=== PATIENT | male | born 1945 | race Caucasian/White ===

== ENCOUNTER 2024-02-12 06:50 | Day surgery (SDC) | payer MEDICARE ==
[~2024-02-12] VITALS: Ht 170.2 cm; Wt 63.9 kg
[2024-02-12] VITALS (9 sets, daily range): BP systolic 135–150; BP diastolic 65–95; PULSE 54–68; TEMP 98.4
[2024-02-12] MEDS ORDERED: 1/2 NS 1,000 ML IV SCH (07:30)
[2024-02-12 07:51] LABS: HEMATOCRIT 45.2 % (42.0-52.0); HEMOGLOBIN 15.7 g/dl (13.5-18.0); MEAN CELL VOLUME 90 fl (80.0-100.0); MEAN CORPUSCULAR HEMOGLOBIN 31 pg (27-31); MEAN CORPUSCULAR HGB CONC 35 g/dl (33.0-37.0); MEAN PLATELET VOLUME 10.7 fl (7.4-10.4); PLATELET COUNT 150 K/mm3 (130-400); RED BLOOD COUNT 5.01 M/mm3 (4.20-5.60)
[2024-02-12 07:56] LABS: INR 1.1 (0.8-3.0); PROTHROMBIN TIME 11.5 SECONDS (9.7-12.8)
[2024-02-12 07:59] LABS: PARTIAL THROMBOPLASTIN TIME 28.5 SECONDS (26.0-37.0)
[2024-02-12 08:05] LABS: CALCIUM 9.2 mg/dL (8.4-10.2); CREATININE, serum 0.87 mg/dL (0.72-1.25); POTASSIUM 3.7 mEq/L (3.5-4.5)
[2024-02-12] MEDS ORDERED: ASPIRIN 81M81 MG/TA2 PO (08:07)
[2024-02-12] MEDS ORDERED: ALLEGRA 180MG180 MG PO (08:08)
[2024-02-12] MEDS ORDERED: MULTIPLE VITAMI1 CAP PO (08:08)
[2024-02-12] MEDS ORDERED: GLUCOPHAGE1000 MG PO (08:09)
[2024-02-12] MEDS ORDERED: DIABETA 5MG5 MG/TAB PO (08:09)
[2024-02-12] MEDS ORDERED: LIPITOR 40MG TA40 MG PO (08:10)
[2024-02-12] MEDS ORDERED: NORVASC 10MG10 MG PO (08:10)
[2024-02-12] MEDS ORDERED: VITAMIN FLUSH-F1 CAP (08:10)
[2024-02-12] MEDS ORDERED: FLOMAX 0.40.4 MG/CAP PO (08:11)
[2024-02-12] MEDS ORDERED: AMBIEN 10MG10 MG PO (08:12)
[2024-02-12] MEDS ORDERED: Nitroglycerin 2% Topical Oint 1 GM UD TD SCH (08:37)
[2024-02-12] MEDS ORDERED: niCARdipine (Cath Lab) 100 MCG/ML 10 ML VIAL IA SCH (10:36)
[2024-02-12] MEDS ORDERED: Heparin 1,000 UNITS/ML 10 ML Multi-Dose VIAL IV SCH (10:43)
[2024-02-12] MEDS ORDERED: Midazolam 2 MG/2 ML VIAL IV SCH (10:52)
[2024-02-12] MEDS ORDERED: fentaNYL 50 MCG/ML 2 ML VIAL IV SCH (10:56)
[2024-02-12] MEDS ORDERED: Iohexol 350 - 100 ML VIAL INCOR ONE (10:59)
[2024-02-12] MEDS ORDERED: Heparin/D5W 250 ML IV SCH (11:30)
[2024-02-12] MEDS ORDERED: Heparin 5,000 UNITS/ML 1 ML VIAL IV PRN (11:30)
--- NOTE | 2024-02-12 11:38 | NUR ---
Please see merge document for record of interventions, vitals and medications administered during left heart cath with Dr. Medley. Pt has been transferred back to express unit rm 9 for monitoring until probable transfer to [place]. Pt and have been updated on poc by Dr. Medley. BS report and handoff of care to Isabell NIETO.
[2024-02-12] MEDS ORDERED: HEPARIN SOD5000 U/ML IV (13:00)
--- NOTE | 2024-02-12 14:05 | NUR ---
Pt ambulated to EU9 with a steady gait, accompanied by their . Pt was scheduled for a [facility]. Meds and HX reviewed with the pt. Consent for the procedure signed. EKG done. IV started, labs drawn. Post procedure the pt came back to EU9. talked with the pt about being transferred to [place] for further care. This nurse discussed with the pt that they were to be complete bedrest, if they needed to use the restroom they were to use a urinal. Also the pt would stay NPO incase they planned to have a procedure done at [facility]. Pt verbalized their understanding. EMS came to get the pt and reported given to EMS. The pt left with EMS at 1341. At 1351 report to GERSON Lo at [facility] given. Teresita did not have any questions at this time, but took our number incase a question was thought of.
== END 2024-02-12 13:41 | disposition short-term general hospital (02) ==
LOC: COL.CAR 06:50
PROVIDERS: Internal Medicine Cardiovascular Disease
DX: I25.10 Atherosclerotic heart disease of native coronary artery without angina pectoris (principal)
CPT/HCPCS: C1769; J1644; J2250; J2404; J3010; Q9967

== ENCOUNTER 2024-03-16 17:47 | Emergency (ER) | payer MEDICARE ==
[~2024-03-16] VITALS: Ht 170.2 cm; Wt 60.5 kg
[~2024-03-16 17:47] MED LIST: ALLEGRA 180MG180 MG PO; AMBIEN 10MG10 MG PO; ASPIRIN 81M81 MG/TA2 PO; DIABETA 5MG5 MG/TAB PO; FLOMAX 0.40.4 MG/CAP PO; GLUCOPHAGE1000 MG PO; HEPARIN SOD5000 U/ML IV; LIPITOR 40MG TA40 MG PO; MULTIPLE VITAMI1 CAP PO; NORVASC 10MG10 MG PO; VITAMIN FLUSH-F1 CAP
[2024-03-16 17:49] VITALS: TEMP 97
[2024-03-16] MEDS ORDERED: Dextrose 50% Water 25 GM/50 ML SYRINGE IV ONE (18:00)
[2024-03-16 18:02] LABS: BASO % 0.3 % (0.0-2.0); EOS % 0.3 % (0.0-4.0); GRAN # 4.1 K/mm3 (1.4-6.5); GRAN % 63.5 % (42.2-75.2); HEMATOCRIT 38.2 % (42.0-52.0); HEMOGLOBIN 12.3 g/dl (13.5-18.0); LYMPH # 1.8 K/mm3 (1.2-3.4); LYMPH % 27.1 % (20.0-51.0); MEAN CELL VOLUME 92 fl (80.0-100.0); MEAN CORPUSCULAR HEMOGLOBIN 30 pg (27-31); MEAN CORPUSCULAR HGB CONC 32 g/dl (33.0-37.0); MEAN PLATELET VOLUME 10.1 fl (7.4-10.4); MONO # 0.6 K/mm3 (0.1-0.6); MONO % 8.6 % (1.7-9.3); PLATELET COUNT 207 K/mm3 (130-400); RED BLOOD COUNT 4.17 M/mm3 (4.20-5.60); REDCELL DISTRIBUTION WIDTH-CV 12.7 % (11.5-14.5)
[2024-03-16 18:17] LABS: ALBUMIN 3.8 g/dL (3.4-4.8); BILIRUBIN,TOTAL 0.6 mg/dL (0.2-1.2); CALCIUM 9.6 mg/dL (8.4-10.2); CREATININE, serum 0.78 mg/dL (0.72-1.25); POTASSIUM 3.6 mEq/L (3.5-4.5); TOTAL PROTEIN 6.8 g/dl (6.2-8.1)
[2024-03-16 19:33] VITALS: BP 125/78; PULSE 83
== END 2024-03-16 19:33 | disposition home or self-care (01) ==
LOC: COL.ER 17:47
PROVIDERS: Personal Emergency Response Attendant
DX: E11.649 Type 2 diabetes mellitus with hypoglycemia without coma (principal); Z79.84 Long term (current) use of oral hypoglycemic drugs